=== PATIENT | female | born 1945 | race Two or more races ===

== ENCOUNTER 2025-05-26 13:49 | Emergency (ER) | payer OTHER ==
[~2025-05-26] VITALS: Ht 162.6 cm; Wt 88.0 kg
[2025-05-26 13:52] VITALS: TEMP 98; O2SAT 98
[2025-05-26] MEDS: FAMOTIDINE 20MG/2ML VIAL IV ONE (14:30)
[2025-05-26] MEDS: ONDANSETRON HCL 4MG/2ML INJ IV ONE (14:30)
[2025-05-26 14:59] LABS: BASOPHILS % 0.4 % (0.0-2.0); EOSINOPHILS % 0.5 % (0.0-5.0); HEMATOCRIT. 38.3 % (36.0-48.0); HEMOGLOBIN. 12.7 g/dL (12.0-16.0); LYMPHOCYTES % 10.8 % (20.0-50.0); MEAN PLATELET VOLUME 8.0 fl (7.4-10.4); MONOCYTES % 6.6 % (2.0-8.0); NEUTROPHILS % 81.7 % (40.0-76.0); PLATELET 204 x1000/uL (130-400); RED BLOOD CELL COUNT 4.37 mill/uL (4.2-5.4); RED CELL DISTRIBUTION WIDTH 15.2 % (11.6-14.6)
[2025-05-26 15:13] LABS: CREATININE 1.2 mg/dL (0.6-1.0); UREA NITROGEN BLOOD 27 mg/dL (9-23)
[2025-05-26 15:14] LABS: PROTEIN TOTAL 6.8 g/dL (6.0-8.3); TROPONIN I HIGH SENSITIVITY 23 ng/L (3.0-34)
[2025-05-26 15:15] LABS: ASPARTATE AMINOTRANSFERASE 282 IU/L (<34); BILIRUBIN DIRECT 0.5 mg/dL (<=3.0)
[2025-05-26 15:16] LABS: BILIRUBIN TOTAL 1.0 mg/dL (0.1-1.0)
[2025-05-26] MEDS: SODIUM CHLORIDE 0.9% 1,000 ML IV ONE (15:18)
[2025-05-26 16:58] VITALS: BP 110/47; PULSE 65; RESP 15; O2SAT 99
[2025-05-26] MEDS ORDERED: IOHEXOL-300 100 ML BOTTLE ONE (23:42)
== END 2025-05-26 17:09 | disposition left against medical advice (07) ==
LOC: ER 13:49 → CANBEDREQ 17:06 → ER 17:09
DX: R10.13 Epigastric pain (principal); R06.02 Shortness of breath
CPT/HCPCS: 99285; 74177; 96360; 96361; 80076; 80048; 83880; 83690; 83735; 85025; 84484; 36415; Q9967; J7030; A4606; J1308